=== PATIENT | male | born 1960 | race Caucasian/White ===

== ENCOUNTER 2020-09-30 13:25 | Outpatient (CLI) | payer OTHER, SELFPAY ==
[2020-10-01 01:48] LABS: SARS-CoV-2 RNA PCR Negative
== END 2020-09-30 13:26 | disposition home or self-care (01) ==
LOC: CHSLAB 13:33
PROVIDERS: PCP Physician Assistant; Visit Provider Internal Medicine Gastroenterology
DX: Z01.818 Encounter for other preprocedural examination (principal); Z20.822 Contact with and (suspected) exposure to COVID-19
CPT/HCPCS: C9803; U0003; U0005

== ENCOUNTER 2020-10-10 08:41 | Outpatient (CLI) | payer OTHER, SELFPAY ==
[2020-10-10 09:58] LABS: Alanine Aminotransferase 49 U/L (16-63); Albumin Level 4.1 g/dL (3.4-5.0); Alkaline Phosphatase 59 U/L (46-116); Anion Gap 8 mmol/L (8-16); Aspartate Amino Transferase 24 U/L (15-37); Bilirubin,Total 0.7 mg/dL (0.00-1.00); Blood Urea Nitrogen 16 mg/dL (7-18); Calcium 9.7 mg/dL (8.5-10.1); Carbon Dioxide 30 mmol/L (21-32); Chloride 104 mmol/L (98-108); Cholesterol 127 mg/dL (0-200); Estimated Glomerular Filt Rate 56; Glucose 100 mg/dL (70-99); HDL Direct 27 mg/dL (40-60); LDL Cholesterol Calculated 67 mg/dL (<130); Osmolality Calculated 295 mOsm/kg (285-295); Potassium 4.8 mmol/L (3.5-5.1); Sodium 142 mmol/L (136-145); Triglycerides 164 mg/dL (0-150)
== END 2020-10-10 08:42 | disposition home or self-care (01) ==
LOC: CHSLAB 08:43
PROVIDERS: PCP Family Medicine; Visit Provider Family Medicine
DX: E78.5 Hyperlipidemia, unspecified (principal)
CPT/HCPCS: 36415; 80053; 80061

== ENCOUNTER 2021-02-10 19:34 | Emergency (ER) | payer OTHER, SELFPAY ==
[2021-02-10 19:50] VITALS: BP 177/91; PULSE 92; RESP 20; TEMP 36.7; O2SAT 98
--- NOTE | 2021-02-10 20:22 | ED.EYEPROB ---
HPI - Eye Problem General Chief complaint: Eye Problems Stated complaint: eye injury Time Seen by Provider: 02/10/21 19:52 Source: patient and family Mode of arrival: ambulatory Limitations: no limitations History of Present Illness HPI Narrative: left eye redness and lower lid swelling. no vision loss chief complaint: eye pain and eye redness Onset (ago): day(s) (1) Onset description: sudden Duration: constant Location: left eye Eye Symptoms: redness and foreign body sensation Place: street/outdoors Severity: mild Severity scale (1-10): 3 If Pain, Quality: aching Treatments Prior to Arrival: none Related Data Home Medications Medication Instructions Recorded Confirmed apixaban [Eliquis] 5 mg PO BID 02/10/21 02/10/21 fenofibrate 160 mg PO DAILY 02/10/21 02/10/21 lisinopril 10 mg PO DAILY 02/10/21 02/10/21 rosuvastatin 10 mg PO DAILY 02/10/21 02/10/21 Allergies Allergy/AdvReac Type Severity Reaction Status Date / Time No Known Allergies Allergy Verified 02/10/21 19:59 Review of Systems Review of Systems: All systems reviewed & are unremarkable except as noted in HPI and below Constitutional: Constitutional: Reports as per HPI and Reports no additional constitutional complaints Eyes: Eyes: Reports as per HPI and Reports no additional eye complaints Comments: left eye redness and lid swelling ENT: Reports system reviewed and no additional complaints, except as documented and Reports as per HPI Cardiovascular: Cardiovascular: Reports as per HPI and Reports no additional cardiovascular complaints Respiratory: Respiratory: Reports as per HPI and Reports no additional respiratory complaints Gastrointestinal: Gastrointestinal: Reports as per HPI and Reports no additional gastrointestinal complaints Genitourinary: Genitourinary: Reports no additional male genitourinary complaints and Reports as per HPI Musculoskeletal: Musculoskeletal: Reports no additional musculoskeletal complaints and Reports as per HPI Integumentary/Breasts: Skin/Breast: Reports system reviewed and no additional complaints, except as docu and Reports as per HPI Neurologic: Reports system reviewed and no additional complaints, except as documented and Reports as per HPI Psychiatric: Psychiatric: Reports no additional psychiatric complaints and Reports as per HPI Endocrine: Endocrine: Reports no additional endocrine complaints and Reports as per HPI Hematologic/Lymphatic: Hematologic/Lymphatic: Reports no additional hematologic/lymphatic complaints and Reports as per HPI Allergic/Immunologic: Allergic/Immunologic: Reports no additional allergic/immunologic complaints and Reports as per HPI [facility] Social History Social History Smoking status: Never smoker Gender identity (if verbalized by the patient): Male Exam Const: General: no acute distress and alert Orientation/consciousness: patient oriented x3 HENMT: Head: normal to inspection Ears: external ears normal and TM's normal bilaterally General nose exam: Normal external nose present and Normal nares present Mouth: Yes moist mucous membranes Throat: posterior oropharynx normal Eyes: Conjunctivae: conjunctivae normal Pupils: Equal, round and reactive pupils present EOM: EOMs intact bilaterally Other: corneal abrasion at 6pm + mild scleral injection Neck: Neck: normal visual inspection and no lymphadenopathy Chest: Chest palpation & inspection: normal inspection of the chest and abnormal inspection of the chest Resp: Effort & Inspection: normal respiratory effort Auscultation: clear to auscultation bilaterally Cardio: Rate: regular rate Rhythm: regular rhythm GI: Auscultation: normal bowel sounds : Male General Exam: Yes normal external exam Testes: Testes normal Back/Spine/Pelvis: Back: no CVA tenderness Skin: General skin exam: normal color Rashes: no rashes Neuro: General: patient oriented x3, mov
[2021-02-10] MEDS: ERYTHROMYCIN OPHTH OINTMENT 3.5 GM TUBE 1 APPLIC LEFT EYE (20:29)
[2021-02-10 20:37] VITALS: BP 167/80; PULSE 84; RESP 20; TEMP 36.7; O2SAT 98
== END 2021-02-10 20:38 | disposition home or self-care (01) ==
PROVIDERS: Emergency Provider Emergency Medicine; PCP Physician Assistant
DX: S05.02XA Injury of conjunctiva and corneal abrasion without foreign body, left eye, initial encounter (principal); H01.015 Ulcerative blepharitis left lower eyelid
CPT/HCPCS: 99283

== ENCOUNTER 2021-04-13 09:13 | Outpatient (CLI) | payer OTHER, SELFPAY ==
[2021-04-13 10:20] LABS: Alanine Aminotransferase 48 U/L (16-63); Albumin Level 4.1 g/dL (3.4-5.0); Alkaline Phosphatase 53 U/L (46-116); Aspartate Amino Transferase 24 U/L (15-37); Bilirubin,Total 0.7 mg/dL (0.00-1.00); Blood Urea Nitrogen 17 mg/dL (7-18); Calcium 9.4 mg/dL (8.5-10.1); Carbon Dioxide 29 mmol/L (21-32); Cholesterol 136 mg/dL (0-200); Estimated Glomerular Filt Rate > 60; Glucose 96 mg/dL (70-99); HDL Direct 27 mg/dL (40-60); LDL Cholesterol Calculated 56 mg/dL (<130); Prostate Specific Antigen 1.1 ng/mL (< OR = 4.0); Total Protein 6.8 g/dL (6.4-8.2); Triglycerides 265 mg/dL (0-150)
[2021-04-13 13:44] LABS: Anion Gap 4 mmol/L (8-16); Chloride 106 mmol/L (98-107); Osmolality Calculated 289 mOsm/kg (285-295); Potassium 4.5 mmol/L (3.4-5.0); Sodium 139 mmol/L (137-145)
== END 2021-04-13 09:14 | disposition home or self-care (01) ==
PROVIDERS: PCP Physician Assistant; Visit Provider Family Medicine
DX: E78.5 Hyperlipidemia, unspecified (principal); Z12.5 Encounter for screening for malignant neoplasm of prostate
CPT/HCPCS: 36415; 80053; 80061; 84153; G0103

== ENCOUNTER 2021-10-09 08:33 | Outpatient (CLI) | payer OTHER, SELFPAY ==
[2021-10-09 09:00] LABS: Hemoglobin A1C 5.3 % (<5.7)
[2021-10-09 09:18] LABS: Alanine Aminotransferase 50 U/L (16-63); Albumin Level 4.3 g/dL (3.4-5.0); Alkaline Phosphatase 53 U/L (46-116); Anion Gap 8 mmol/L (8-16); Aspartate Amino Transferase 21 U/L (15-37); Bilirubin,Total 0.8 mg/dL (0.00-1.00); Blood Urea Nitrogen 25 mg/dL (7-18); Calcium 9.2 mg/dL (8.5-10.1); Carbon Dioxide 28 mmol/L (21-32); Chloride 104 mmol/L (98-108); Cholesterol 146 mg/dL (0-200); Estimated Glomerular Filt Rate 58; Glucose 102 mg/dL (70-99); HDL Direct 31 mg/dL (40-60); LDL Cholesterol Calculated 70 mg/dL (<130); Osmolality Calculated 294 mOsm/kg (285-295); Potassium 4.4 mmol/L (3.5-5.1); Sodium 140 mmol/L (136-145); Triglycerides 227 mg/dL (0-150)
== END 2021-10-09 08:34 | disposition home or self-care (01) ==
LOC: CHSLAB 08:36
PROVIDERS: PCP Family Medicine; Visit Provider Physician Assistant
DX: E78.5 Hyperlipidemia, unspecified (principal); R73.01 Impaired fasting glucose
CPT/HCPCS: 36415; 80053; 80061; 83036

== ENCOUNTER 2021-10-30 13:26 | Outpatient (CLI) | payer OTHER, SELFPAY ==
[2021-10-30 14:33] LABS: Prostate Specific Antigen 1.6 ng/mL (< OR = 4.0)
== END 2021-10-30 13:27 | disposition home or self-care (01) ==
LOC: CHSLAB 13:28
PROVIDERS: PCP Physician Assistant; Visit Provider Family Medicine
DX: Z12.5 Encounter for screening for malignant neoplasm of prostate (principal)
CPT/HCPCS: 36415; 84153; G0103

== ENCOUNTER 2022-04-02 09:21 | Outpatient (CLI) | payer OTHER, SELFPAY ==
[2022-04-02 09:32] LABS: Basophils Absolute Auto 0.04 K/mm3 (0.00-0.10); Basophils Percent Auto 0.6 % (0.0-1.0); Eosinophils Absolute Auto 0.23 K/mm3 (0.02-0.50); Eosinophils Percent Auto 3.5 % (1.0-6.0); Hematocrit 49.5 % (40.0-54.0); Hemoglobin 16.9 g/dL (14.0-18.0); Immature Granulocyte Absolute 0.02 K/mm3 (0.00-0.00); Immature Granulocyte Percent A 0.3 % (0.0-0.0); Lymphocytes Absolute Auto 1.66 K/mm3 (1.10-4.50); Lymphocytes Percent Auto 25.2 % (18.0-42.0); Mean Corpuscular HGB Conc 34.1 g/dL (32.0-36.0); Mean Corpuscular Hemoglobin 32.7 pg (27.0-31.0); Mean Corpuscular Volume 95.7 fL (78.0-102.0); Mean Platelet Volume 10.3 fl (8.7-11.0); Monocytes Absolute Auto 0.63 K/mm3 (0.10-0.90); Monocytes Percent Auto 9.6 % (2.0-11.0); Neutrophils Percent Auto 60.8 % (50.0-70.0); Platelet Count Result 202 K/mm3 (150-420); Red Blood Count 5.17 M/mm3 (4.70-6.10); Red Cell Distribution Width 11.6 % (11.6-14.4); White Blood Count 6.6 K/mm3 (4.8-10.8)
[2022-04-02 09:53] LABS: Alanine Aminotransferase 35 U/L (16-63); Alkaline Phosphatase 57 U/L (46-116); Anion Gap 8 mmol/L (8-16); Aspartate Amino Transferase 23 U/L (15-37); Bilirubin,Total 0.7 mg/dL (0.00-1.00); Blood Urea Nitrogen 20 mg/dL (7-18); Calcium 9.3 mg/dL (8.5-10.1); Carbon Dioxide 28 mmol/L (21-32); Chloride 105 mmol/L (98-108); Cholesterol 127 mg/dL (0-200); Estimated Glomerular Filt Rate 57; Glucose 109 mg/dL (70-99); HDL Direct 32 mg/dL (40-60); LDL Cholesterol Calculated 59 mg/dL (<130); Osmolality Calculated 295 mOsm/kg (285-295); Potassium 4.1 mmol/L (3.5-5.1); Sodium 141 mmol/L (136-145); Triglycerides 181 mg/dL (0-150)
== END 2022-04-02 09:22 | disposition home or self-care (01) ==
LOC: CHSLAB 09:24
PROVIDERS: PCP Family Medicine; Visit Provider Family Medicine
DX: E78.5 Hyperlipidemia, unspecified (principal); Z79.01 Long term (current) use of anticoagulants
CPT/HCPCS: 36415; 80053; 80061; 85025

== ENCOUNTER 2022-10-07 08:00 | Outpatient (CLI) | payer OTHER, SELFPAY ==
[2022-10-07 08:20] LABS: Basophils Absolute Auto 0.04 K/mm3 (0.00-0.10); Basophils Percent Auto 0.6 % (0.0-1.0); Eosinophils Absolute Auto 0.23 K/mm3 (0.02-0.50); Eosinophils Percent Auto 3.2 % (1.0-6.0); Hematocrit 48.8 % (40.0-54.0); Hemoglobin 16.5 g/dL (14.0-18.0); Immature Granulocyte Absolute 0.01 K/mm3 (0.00-0.00); Immature Granulocyte Percent A 0.1 % (0.0-0.0); Lymphocytes Absolute Auto 1.93 K/mm3 (1.10-4.50); Lymphocytes Percent Auto 26.7 % (18.0-42.0); Mean Corpuscular HGB Conc 33.8 g/dL (32.0-36.0); Mean Corpuscular Hemoglobin 32.4 pg (27.0-31.0); Mean Corpuscular Volume 95.9 fL (78.0-102.0); Mean Platelet Volume 10.3 fl (8.7-11.0); Monocytes Percent Auto 9.7 % (2.0-11.0); Neutrophils Absolute Auto 4.3 K/mm3 (1.7-7.2); Neutrophils Percent Auto 59.7 % (50.0-70.0); Platelet Count Result 202 K/mm3 (150-420); Red Blood Count 5.09 M/mm3 (4.70-6.10); Red Cell Distribution Width 11.7 % (11.6-14.4); White Blood Count 7.2 K/mm3 (4.8-10.8)
[2022-10-07 08:29] LABS: Hemoglobin A1C 5.3 % (<5.7)
[2022-10-07 09:53] LABS: Alanine Aminotransferase 42 U/L (16-63); Albumin Level 3.9 g/dL (3.4-5.0); Alkaline Phosphatase 51 U/L (46-116); Anion Gap 8 mmol/L (8-16); Aspartate Amino Transferase 25 U/L (15-37); Bilirubin,Total 0.7 mg/dL (0.00-1.00); Blood Urea Nitrogen 20 mg/dL (7-18); Calcium 9.7 mg/dL (8.5-10.1); Carbon Dioxide 30 mmol/L (21-32); Chloride 106 mmol/L (98-108); Cholesterol 127 mg/dL (0-200); Estimated Glomerular Filt Rate 56; Glucose 102 mg/dL (70-99); HDL Direct 30 mg/dL (40-60); LDL Cholesterol Calculated 63 mg/dL (<130); Osmolality Calculated 300 mOsm/kg (285-295); Potassium 4.5 mmol/L (3.5-5.1); Prostate Specific Antigen 1.3 ng/mL (< OR = 4.0); Sodium 144 mmol/L (136-145); Total Protein 6.7 g/dL (6.4-8.2); Triglycerides 171 mg/dL (0-150)
== END 2022-10-07 08:01 | disposition home or self-care (01) ==
LOC: CHSLAB 08:03
PROVIDERS: PCP Family Medicine; Visit Provider Family Medicine
DX: E78.5 Hyperlipidemia, unspecified (principal); Z79.01 Long term (current) use of anticoagulants; R73.01 Impaired fasting glucose; Z12.5 Encounter for screening for malignant neoplasm of prostate
CPT/HCPCS: 36415; 80053; 80061; 83036; 84153; 85025; G0103

== ENCOUNTER 2023-04-12 09:53 | Outpatient (CLI) | payer OTHER, SELFPAY ==
[2023-04-12 10:06] LABS: Basophils Absolute Auto 0.05 K/mm3 (0.00-0.10); Basophils Percent Auto 0.7 % (0.0-1.0); Eosinophils Absolute Auto 0.22 K/mm3 (0.02-0.50); Eosinophils Percent Auto 3.2 % (1.0-6.0); Hematocrit 48.8 % (37.0-46.0); Hemoglobin 16.6 g/dL (12.4-15.3); Immature Granulocyte Absolute 0.04 K/mm3 (0.00-0.00); Immature Granulocyte Percent A 0.6 % (0.0-0.0); Lymphocytes Absolute Auto 1.78 K/mm3 (1.10-4.50); Lymphocytes Percent Auto 25.6 % (18.0-42.0); Mean Corpuscular Hemoglobin 32.8 pg (27.0-31.0); Mean Corpuscular Volume 96.4 fL (78.0-102.0); Mean Platelet Volume 9.9 fl (8.7-11.0); Monocytes Absolute Auto 0.65 K/mm3 (0.10-0.90); Monocytes Percent Auto 9.4 % (2.0-11.0); Neutrophils Absolute Auto 4.2 K/mm3 (1.7-7.2); Neutrophils Percent Auto 60.5 % (50.0-70.0); Platelet Count Result 203 K/mm3 (150-420); Red Blood Count 5.06 M/mm3 (4.70-6.10); Red Cell Distribution Width 11.9 % (11.6-14.4)
[2023-04-12 11:01] LABS: Alanine Aminotransferase 33 U/L (16-63); Albumin Level 3.9 g/dL (3.4-5.0); Alkaline Phosphatase 58 U/L (46-116); Anion Gap 8 mmol/L (8-16); Aspartate Amino Transferase 19 U/L (15-37); Bilirubin,Total 0.7 mg/dL (0.00-1.00); Blood Urea Nitrogen 20 mg/dL (7-18); Calcium 9.9 mg/dL (8.5-10.1); Carbon Dioxide 29 mmol/L (21-32); Chloride 106 mmol/L (98-108); Cholesterol 123 mg/dL (0-200); Estimated Glomerular Filt Rate > 60; Glucose 98 mg/dL (70-99); HDL Direct 30 mg/dL (40-60); LDL Cholesterol Calculated 61 mg/dL (<130); Osmolality Calculated 298 mOsm/kg (285-295); Potassium 4.4 mmol/L (3.5-5.1); Sodium 143 mmol/L (136-145); Total Protein 6.8 g/dL (6.4-8.2); Triglycerides 161 mg/dL (0-150)
== END 2023-04-12 09:54 | disposition home or self-care (01) ==
LOC: CHSLAB 09:55
PROVIDERS: PCP Family Medicine; Visit Provider Family Medicine
DX: E78.5 Hyperlipidemia, unspecified (principal); I10 Essential (primary) hypertension
CPT/HCPCS: 36415; 80053; 80061; 85025

== ENCOUNTER 2023-10-11 09:36 | Outpatient (CLI) | payer MEDICARE, SELFPAY ==
[2023-10-11 10:34] LABS: Alanine Aminotransferase 53 U/L (16-63); Albumin Level 4.2 g/dL (3.4-5.0); Alkaline Phosphatase 49 U/L (46-116); Anion Gap 10 mmol/L (8-16); Aspartate Amino Transferase 24 U/L (15-37); Bilirubin,Total 0.9 mg/dL (0.00-1.00); Blood Urea Nitrogen 20 mg/dL (7-18); Carbon Dioxide 27 mmol/L (21-32); Chloride 106 mmol/L (98-108); Cholesterol 121 mg/dL (0-200); Estimated Glomerular Filt Rate 56; Glucose 104 mg/dL (70-99); HDL Direct 34 mg/dL (40-60); LDL Cholesterol Calculated 54 mg/dL (<130); Osmolality Calculated 298 mOsm/kg (285-295); Potassium 4.5 mmol/L (3.5-5.1); Prostate Specific Antigen 1.5 ng/mL (< OR = 4.0); Sodium 143 mmol/L (136-145); Total Protein 6.9 g/dL (6.4-8.2); Triglycerides 166 mg/dL (0-150)
== END 2023-10-11 09:37 | disposition home or self-care (01) ==
LOC: CHSLAB 09:41
PROVIDERS: PCP Family Medicine; Visit Provider Family Medicine
DX: E78.5 Hyperlipidemia, unspecified (principal); Z12.5 Encounter for screening for malignant neoplasm of prostate
CPT/HCPCS: 36415; 80053; 80061; 84153; G0103

== ENCOUNTER 2024-04-11 08:40 | Outpatient (CLI) | payer MEDICARE, SELFPAY ==
[2024-04-11 08:53] LABS: Basophils Absolute Auto 0.04 K/mm3 (0.00-0.10); Basophils Percent Auto 0.6 % (0.0-1.0); Eosinophils Absolute Auto 0.29 K/mm3 (0.02-0.50); Eosinophils Percent Auto 4.2 % (1.0-6.0); Hematocrit 49.3 % (37.0-46.0); Hemoglobin 16.9 g/dL (12.4-15.3); Immature Granulocyte Absolute 0.03 K/mm3 (0.00-0.00); Immature Granulocyte Percent A 0.4 % (0.0-0.0); Lymphocytes Absolute Auto 1.86 K/mm3 (1.10-4.50); Lymphocytes Percent Auto 26.8 % (18.0-42.0); Mean Corpuscular HGB Conc 34.3 g/dL (32-36); Mean Corpuscular Hemoglobin 32.5 pg (27.0-31.0); Mean Corpuscular Volume 94.8 fL (78.0-102.0); Mean Platelet Volume 9.9 fl (8.7-11.0); Monocytes Absolute Auto 0.69 K/mm3 (0.10-0.90); Monocytes Percent Auto 9.9 % (2.0-11.0); Neutrophils Absolute Auto 4.04 K/mm3 (1.70-7.20); Neutrophils Percent Auto 58.1 % (50.0-70.0); Platelet Count Result 203 K/mm3 (150-420); Red Cell Distribution Width 11.9 % (11.6-14.4)
[2024-04-11 09:11] LABS: Hemoglobin A1C 5.2 % (<5.7)
[2024-04-11 09:37] LABS: Alanine Aminotransferase 44 U/L (16-63); Albumin Level 4.2 g/dL (3.4-5.0); Alkaline Phosphatase 60 U/L (46-116); Anion Gap 5 mmol/L (4-12); Aspartate Amino Transferase 24 U/L (15-37); Bilirubin,Total 0.7 mg/dL (0.00-1.00); Blood Urea Nitrogen 19 mg/dL (7-18); Calcium 9.9 mg/dL (8.5-10.1); Carbon Dioxide 32 mmol/L (21-32); Chloride 103 mmol/L (98-108); Cholesterol 149 mg/dL (0-200); Estimated Glomerular Filt Rate 54; Glucose 102 mg/dL (70-99); HDL Direct 34 mg/dL (40-60); LDL Cholesterol Calculated 61 mg/dL (<130); Osmolality Calculated 292 mOsm/kg (285-295); Potassium 4.5 mmol/L (3.5-5.1); Sodium 140 mmol/L (136-145); Total Protein 7.8 g/dL (6.4-8.2); Triglycerides 268 mg/dL (0-150)
== END 2024-04-11 08:41 | disposition home or self-care (01) ==
LOC: CHSLAB 08:42
PROVIDERS: PCP Family Medicine; Visit Provider Physician Assistant
DX: I10 Essential (primary) hypertension (principal); E78.5 Hyperlipidemia, unspecified; R73.01 Impaired fasting glucose
CPT/HCPCS: 36415; 80053; 80061; 83036; 85025

== ENCOUNTER 2024-04-13 13:45 | Outpatient (CLI) | payer MEDICARE, SELFPAY ==
[2024-04-16 20:04] LABS: Alternaria alternata IgE <0.10 kU/L; Alternaria alternata IgE Class 0; Aspergillus fumigatus IgE <0.10 kU/L; Bermuda Grass (G2) IgE <0.10 kU/L; Bermuda Grass (G2) IgE Class 0; Cat Dander IgE <0.10 kU/L; Cat Dander IgE Class 0; Cladosporium herbarum IgE <0.10 kU/L; Cladosporium herbarum IgE Clas 0; Cockroach IgE <0.10 kU/L; Cockroach IgE Clas 0; Common Ragweed IgE Class 0; Cottonwood IgE <0.10 kU/L; Dermatophagoides Farinae Class 0; Dermatophagoides Pterony Class 0; Dermatophagoides Pteronyssinus <0.10 kU/L; Dog Dander IgE <0.10 kU/L; Elm (T8) IgE <0.10 kU/L; Elm (T8) IgE Class 0; Hickory/Pecan IgE <0.10 kU/L; Hickory/Pecan IgE Class 0; Immunoglobulin E 6 kU/L (<OR=114); Maple Box Elder IgE Class 0; Mountain Cedar IgE <0.10 kU/L; Mountain Cedar IgE Class 0; Mouse Urine Proteins IgE <0.10 kU/L; Mouse Urine Proteins IgE Class 0; Oak IgE <0.10 kU/L; Peniciliium notatum class 0; Penicillium notatum (M1) IgE <0.10 kU/L; Rough Marsh <0.10 kU/L; Rough Marsh Elder Class 0; Rough Pigweed (W14) IgE <0.10 kU/L; Rough Pigweed (W14) IgE Class 0; Russian Thistle <0.10 kU/L; Sycamore IgE <0.10 kU/L; Sycamore IgE Class 0; Timothy Grass IgE <0.10 kU/L; Timothy Grass IgE Class 0; Walnut Tree IgE <0.10 kU/L; Walnut Tree IgE Class 0; White Ash IgE Class 0; White Mulberry IgE <0.10 kU/L; White Mulberry IgE Class 0
== END 2024-04-13 13:46 | disposition home or self-care (01) ==
LOC: CHSLAB 13:47
PROVIDERS: PCP Family Medicine; Visit Provider Physician Assistant
DX: J30.2 Other seasonal allergic rhinitis (principal)
CPT/HCPCS: 36415; 82785; 86003

== ENCOUNTER 2024-10-09 08:51 | Outpatient (CLI) | payer MEDICARE, SELFPAY ==
[2024-10-09 09:23] LABS: Basophils Absolute Auto 0.05 K/mm3 (0.00-0.10); Basophils Percent Auto 0.9 % (0.0-1.0); Eosinophils Percent Auto 3.5 % (1.0-6.0); Hematocrit 50.2 % (37.0-46.0); Hemoglobin 16.8 g/dL (12.4-15.3); Immature Granulocyte Absolute 0.03 K/mm3 (0.00-0.00); Immature Granulocyte Percent A 0.5 % (0.0-0.0); Lymphocytes Absolute Auto 1.45 K/mm3 (1.10-4.50); Lymphocytes Percent Auto 25.3 % (18.0-42.0); Mean Corpuscular HGB Conc 33.5 g/dL (32-36); Mean Corpuscular Hemoglobin 31.7 pg (27.0-31.0); Mean Corpuscular Volume 94.7 fL (78.0-102.0); Mean Platelet Volume 10.2 fl (8.7-11.0); Monocytes Percent Auto 10.5 % (2.0-11.0); Neutrophils Percent Auto 59.3 % (50.0-70.0); Platelet Count Result 195 K/mm3 (150-420); Red Cell Distribution Width 11.6 % (11.6-14.4); White Blood Count 5.7 K/mm3 (4.8-10.8)
[2024-10-09 10:04] LABS: Hemoglobin A1C 5.3 % (<5.7)
[2024-10-09 10:32] LABS: Alanine Aminotransferase 43 U/L (16-63); Albumin Level 4.2 g/dL (3.4-5.0); Alkaline Phosphatase 61 U/L (46-116); Anion Gap 6 mmol/L (4-12); Aspartate Amino Transferase 20 U/L (15-37); Bilirubin,Total 0.9 mg/dL (0.00-1.00); Blood Urea Nitrogen 21 mg/dL (7-18); Carbon Dioxide 30 mmol/L (21-32); Chloride 106 mmol/L (98-108); Cholesterol 113 mg/dL (0-200); Estimated Glomerular Filt Rate 51; Glucose 100 mg/dL (70-99); HDL Direct 33 mg/dL (40-60); LDL Cholesterol Calculated 44 mg/dL (<130); Osmolality Calculated 297 mOsm/kg (285-295); Potassium 4.9 mmol/L (3.5-5.1); Prostate Specific Antigen 1.4 ng/mL (< OR = 4.0); Sodium 142 mmol/L (136-145); Total Protein 6.9 g/dL (6.4-8.2); Triglycerides 180 mg/dL (0-150)
== END 2024-10-09 08:52 | disposition home or self-care (01) ==
LOC: CHSLAB 08:55
PROVIDERS: PCP Family Medicine; Visit Provider Family Medicine
DX: E78.5 Hyperlipidemia, unspecified (principal); Z12.5 Encounter for screening for malignant neoplasm of prostate; R73.01 Impaired fasting glucose
CPT/HCPCS: 36415; 80053; 80061; 83036; 84153; 85025; G0103